=== PATIENT | male | born 1985 | race Caucasian/White ===

== ENCOUNTER 2017-05-05 06:14 | Day surgery (SDC) | payer OTHER ==
[2017-05-05] MEDS ORDERED: LACTATED RINGERS 1,000 ML IV ONE (06:30)
[2017-05-05] MEDS ORDERED: DEXAMETHASONE 4 MG/ML VIAL IVP ONE (07:15)
[2017-05-05] MEDS ORDERED: SUCCINYLCHOLINE 200 MG/10 ML VIAL IVP ONE (07:15)
[2017-05-05] MEDS ORDERED: KETOROLAC 30 MG/ML VIAL IVP ONE (07:15)
[2017-05-05] MEDS ORDERED: MIDAZOLAM 2 MG/2 ML VIAL IVP ONE (07:15)
[2017-05-05] MEDS ORDERED: PROPOFOL 200 MG/20 ML VIAL IVP ONE (07:15)
[2017-05-05] MEDS ORDERED: LIDOCAINE-MPF 2% 5 ML VIAL IM ONE (07:15)
[2017-05-05] MEDS ORDERED: ROCURONIUM 50 MG/5 ML VIAL IVP ONE (07:15)
[2017-05-05] MEDS ORDERED: ONDANSETRON 4 MG/2 ML VIAL IVP ONE (07:15)
[2017-05-05] MEDS ORDERED: LIDOCAINE 1% 50 ML MDV SUBQ ONE ×2 (07:53→08:19)
[2017-05-05] MEDS ORDERED: BUPIVACAINE 0.25%-EPI 1:200000 PF 30 ML VIAL SUBQ ONE ×2 (07:54→08:19)
[2017-05-05 09:25] VITALS: BP 138/67
--- NOTE | 2017-05-07 06:35 | OPERATIVE REPORT ---
DATE OF SURGERY: 05/05/2017 00:00:00 SURGEON: Freida Engle MD. PREOPERATIVE DIAGNOSIS: Internal and external hemorrhoids. POSTOPERATIVE DIAGNOSIS: Internal and external hemorrhoids. PROCEDURE: Exam under anesthesia, excision of external hemorrhoids and banding of internal hemorrhoid. INDICATION FOR PROCEDURE: This is a 31-year-old male who presented to me in the office for elective consultation for bothersome prolapsing hemorrhoids. FINDINGS: After obtaining informed consent from the patient, he was brought into the operating room and positioned on the operating table in the prone position, taking note of pressure points after being intubated by anesthesia. He was administered 2 grams of Ancef. He was then prepped and draped in the usual sterile fashion. A timeout was taken according to protocol. Digital rectal exam was performed and prolapsing external hemorrhoids were visualized predominantly in the 12 o'clock position. Anoscopy revealed circumferential internal hemorrhoids with the largest component in the right anterior position. The external hemorrhoid in the 12 o'clock position was then grasped and the skin at the hemorrhoid base was opened with the 15 blade. The hemorrhoid was then resected with electrocautery. The hemorrhoid excision site was then closed with a running 3-0 Chromic. Inspection revealed a second component of an external hemorrhoid in the right posterior position. This was excised in a similar manner by grasping the hemorrhoid, excising the skin with a 15 blade and excising the hemorrhoidal complex with Bovie cautery. The incision site was closed with 3-0 Chromic and finally an external hemorrhoid in the left lateral position was excised in a similar manner. Further inspection did reveal persistent internal hemorrhoidal tissue predominantly in the right anterior position. Using the banding device, this was banded with 2 rubberbands placed at the site. The anal cavity was then irrigated and hemostasis was noted to be achieved, and 6 mL of lidocaine and Marcaine mixture was injected in the anus and subdermal region. Thrombin and Gelfoam were then packed in the rectum and the patient was extubated and taken to the recovery room in stable condition. ESTIMATED BLOOD LOSS: 10 mL. SPECIMENS: None. COMPLICATIONS: None. JOB #: [id number] EXT JOB #:[id number] [facility]
== END 2017-05-05 06:15 | disposition home or self-care (01) ==
LOC: SDS 06:14
PROVIDERS: ATTEND Surgery
PROC: 06LY3CC Occlusion of Hemorrhoidal Plexus with Extraluminal Device, Percutaneous Approach (ICD-10-PCS; 2017-05-05)
PROC: 06BY0ZC Excision of Hemorrhoidal Plexus, Open Approach (ICD-10-PCS; principal; 2017-05-05 07:30)
DX: K64.8 Other hemorrhoids (principal); F17.210 Nicotine dependence, cigarettes, uncomplicated
CPT/HCPCS: 46260; J7120